=== PATIENT | male | born 1995 | race Caucasian/White ===

== ENCOUNTER 2025-05-06 13:29 | Emergency (ER) | payer OTHER ==
[~2025-05-06] VITALS: Ht 188 cm; Wt 145.1 kg
[~2025-05-06 13:29] MED LIST: LIDO1ADH93 TD; METH-1164 PO; NAPR-837 PO; ZOLO50TA PO
[2025-05-06 14:25] LABS: BASO # 0.1 10^3/uL (0.0-0.2); BASO % 0.6 % (0.0-1.0); EOS # 0.2 10^3/uL (0.0-0.5); EOS % 1.5 % (0.0-3.0); LYMPH # 2.4 10^3/uL (1.5-5.0); LYMPH % 18.3 % (24.0-44.0); MONO # 1.0 10^3/uL (0.0-0.8); MONO % 7.4 % (2.0-8.0); NEUTROPHILS # 9.2 10^3/uL (1.5-8.5); NEUTROPHILS % 71.3 % (36.0-66.0); PLATELET COUNT, AUTOMATED 238 10^3/uL (150-450)
[2025-05-06 14:37] LABS: INR 0.95
[2025-05-06 14:55] LABS: CK-MB VALUE MASS < 1.0 NG/ML (<3.6)
[2025-05-06 14:56] LABS: CALCIUM LEVEL 10.4 MG/DL (8.5-10.1); CARBON DIOXIDE LEVEL 29 MMOL/L (20-31); CHLORIDE LEVEL 97 MMOL/L (98-107); CREATININE FOR GFR 0.98 MG/DL (0.70-1.30); GLOMERULAR FILTRATION RATE > 90.0 (>60); POTASSIUM SERUM 4.1 MMOL/L (3.5-5.1); SODIUM LEVEL 140 MMOL/L (136-145)
[2025-05-06 14:58] LABS: CPK CREATINE PHOSPHOKINASE 113 U/L (46-171)
[2025-05-06 16:18] LABS: CK-MB VALUE MASS < 1.0 NG/ML (<3.6)
[2025-05-06 16:20] LABS: CPK CREATINE PHOSPHOKINASE 99 U/L (46-171)
[2025-05-06] MEDS ORDERED: ISOVUE-370 76% 100 ML VIAL As Ordered ONE (18:14)
[2025-05-06 18:30] LABS: ALT/SGPT 115 U/L (7.0-40); AST/SGOT 115 U/L (<34)
[2025-05-06] MEDS ORDERED: HOME MED LIST COMPLETE! XX SCH (18:45)
[2025-05-06] MEDS: MORPHINE 4 MG/ML 1 ML VIAL IV ONE (19:06)
[2025-05-06] MEDS: ONDANSETRON 4MG 2ML VIAL IV ONE (19:06)
[2025-05-06] MEDS: PERCOCET 5MG/325MG TAB PO ONE (21:20)
[2025-05-06 21:57] LABS: ALT/SGPT 96.0 U/L (7.0-40); AST/SGOT 86.0 U/L (<34)
[2025-05-07] MEDS: NS (Normal Saline) 0.9% 1,000 ML IV SCH (00:52)
[2025-05-07 14:00] VITALS: BP 131/81; TEMP 98; O2SAT 96
== END 2025-05-07 14:01 | disposition home or self-care (01) ==
LOC: M ED 13:29
DX: K85.90 Acute pancreatitis without necrosis or infection, unspecified (principal); R16.0 Hepatomegaly, not elsewhere classified; K76.0 Fatty (change of) liver, not elsewhere classified; F32.A Depression, unspecified; F41.9 Anxiety disorder, unspecified; F17.200 Nicotine dependence, unspecified, uncomplicated; F10.10 Alcohol abuse, uncomplicated
CPT/HCPCS: 71045; 74177; 74181; 76705; 80048; 80076; 82550; 82553; 83690; 84484; 85025; 85610; 85730; 93005; 93041; 94760; 96361; 96374; 99285; J2405; Q9967